=== PATIENT | male | born 2000 | race Caucasian/White ===

== ENCOUNTER 2019-07-28 12:45 | Emergency (ER) | payer BC ==
[2019-07-28 13:15] VITALS: BP 151/75
--- NOTE | 2019-07-28 13:27 | UC ---
Complaint Male HPI - HPI Summary HPI Summary: concern about UTI Odor of the urine for the past 5 days no dysuria , no urinary frequency , urgency no discharge, no abdominal pain. gf with UTI - History of Current Complaint Chief Complaint: UCGU Stated Complaint: STUFFY NOSE,IRAHETA,LOW ENERGY,COUGH Time Seen by Provider: 07/28/19 13:07 Hx Obtained From: Patient Onset/Duration: Gradual Onset, Lasting Days - 5, Still Present Timing: Constant Severity Initially: Mild Pain Intensity: 0 Location: None Aggravating Factor(s): Nothing Alleviating Factor(s): Nothing Associated Signs And Symptoms: Negative: Diaphoresis, Back Pain, Fever, Hematuria, Dysuria, Constipation, Blood in Stool, Rectal Pain, Appetite, Nausea , Vomiting(# Of Episodes =), Penile Swelling, Penile Discharge - Allergies/Home Medications Allergies/Adverse Reactions: Allergies Allergy/AdvReac Type Severity Reaction Status Date / Time No Known Allergies Allergy Verified 07/28/19 13:10 Home Medications: Home Medications NK [No Home Medications Reported] 07/28/19 [History Confirmed 07/28/19] PMH/Surg Hx/FS Hx/Imm Hx Previously Healthy: Yes - Surgical History Surgical History: Yes Surgery Procedure, Year, and Place: appendectomy, tonsils adenoids - Family History Known Family History: Positive: None - Social History Alcohol Use: Weekly Substance Use Type: None Smoking Status (MU): Light Every Day Tobacco Smoker Type: Cigars Have You Smoked in the Last Year: Yes Household Exposure Type: Cigars Review of Systems All Other Systems Reviewed And Are Negative: Yes Skin: Positive: Negative Eyes: Positive: Negative ENT: Positive: Negative Gastrointestinal: Positive: Negative Genitourinary: Positive: Negative Is Patient Immunocompromised?: No Physical Exam Triage Information Reviewed: Yes Appearance: Well-Appearing, No Pain Distress, Well-Nourished Vital Signs: Initial Vital Signs Temp 97.5 F 07/28/19 13:11 Pulse 92 07/28/19 13:11 Resp 16 07/28/19 13:11 BP 151/75 07/28/19 13:11 Pulse Ox 100 07/28/19 13:11 Vital Signs Reviewed: Yes Eye Exam: Normal Eyes: Positive: Conjunctiva Clear ENT: Positive: Normal ENT inspection, Hearing grossly normal, Pharynx normal Neck: Positive: Supple, Nontender, No Lymphadenopathy Respiratory: Positive: Chest non-tender, Lungs clear, Normal breath sounds Cardiovascular: Positive: RRR, No Murmur, Pulses Normal Male Genital Exam: Positive: Normal Genitalia Skin Exam: Normal Complaint Male Course/Dx - Differential Dx/Diagnosis Provider Diagnosis: Bad odor of urine Discharge ED - Sign-Out/Discharge Documenting (check all that apply): Patient Departure All imaging exams completed and their final reports reviewed: No Studies - Discharge Plan Condition: Stable Disposition: HOME Patient Education Materials: Sexually Transmitted Diseases (ED), Condom Use (ED ) Referrals: No Primary Care Phys,NOPCP [Primary Care Provider] - If Needed Additional Instructions: normal urine test will send the urine to check for STD call the office in 2 days for the lab results increase fluid, follow up as needed - Billing Disposition and Condition Condition: STABLE Disposition: Home
[2019-07-29 14:05] LABS: Chlamydia trachomatis NAA Negative (Negative); Neisseria gonorrhoeae (GC) NAA Negative (Negative)
== END 2019-07-28 13:36 | disposition home or self-care (01) ==
LOC: UCCORT 12:45
DX: R82.998 Other abnormal findings in urine (principal); F17.290 Nicotine dependence, other tobacco product, uncomplicated
CPT/HCPCS: 81003; 87491; 87591; 99201; G0463